=== PATIENT | male | born 1990 | race American Indian/Alaskan Native ===

== ENCOUNTER 2016-09-25 14:31 | Emergency (ER) | payer SELFPAY ==
[2016-09-25] MEDS ORDERED: MORPHINE ONE ×3 (14:38→21:54)
[2016-09-25] MEDS ORDERED: ZOFRAN ONE ×2 (14:38→21:53)
[2016-09-25] MEDS ORDERED: ZOFRAN IV ONE ×2 (14:40→22:00)
[2016-09-25] MEDS ORDERED: MORPHINE IV ONE ×3 (14:40→22:00)
[2016-09-25] MEDS ORDERED: NACL 0.9% IR ONE (15:39)
[2016-09-25 17:36] LABS: Basophils % (Auto) 0.1 % (0.0-1.8); Eosinophils % (Auto) 0.2 % (0.0-4.3); Hematocrit 41.8 % (35.5-45.6); Hemoglobin 14.1 gm/dl (11.8-15.2); Mean Corpuscular HGB Conc 34 % (32-34); Mean Corpuscular Hemoglobin 30 pg (28-32); Mean Corpuscular Volume 90 fl (84-94); Platelet Count 229 K/mm3 (140-440); Red Blood Count 4.64 M/mm3 (3.65-5.03); Red Cell Distribution Width 12.3 % (13.2-15.2); White Blood Count 10.9 K/mm3 (4.5-11.0)
[2016-09-25 18:01] LABS: Blood Urea Nitrogen 14 mg/dL (9-20); Calcium 8.5 mg/dL (8.4-10.2); Carbon Dioxide 26 mmol/L (22-30); Chloride 95.6 mmol/L (98-107); Glucose 92 mg/dL (75-100); Potassium 3.8 mmol/L (3.6-5.0); Sodium 132 mmol/L (137-145)
[2016-09-25 18:20] LABS: Anion Gap 14 mmol/L
[2016-09-25] MEDS ORDERED: NACL ONE (18:33)
[2016-09-25] MEDS ORDERED: ceFAZolin 2 GM in NACL 0.9% 100 ML IV ONE (18:36)
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
[2016-09-25 21:33] VITALS: BP 133/72
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
== END 2016-09-25 22:09 ==
LOC: ED 14:31
DX: S42.19 Fracture of other part of scapula (principal); S41.002A Unspecified open wound of left shoulder, initial encounter; I10 Essential (primary) hypertension; W34.00XA Accidental discharge from unspecified firearms or gun, initial encounter; Y93.89 Activity, other specified; Y99.8 Other external cause status; Y92.89 Other specified places as the place of occurrence of the external cause
CPT/HCPCS: 36415; 71020; 71260; 73060; 73090; 73206; 80048; 85025; 96365; 96375; 96376; 99285; J0690; J2270; J2405; Q9967